=== PATIENT | male | born 1975 | race Caucasian/White ===

== ENCOUNTER → 2022-06-19 12:29 | Outpatient (CLI) | payer OTHER, SELFPAY ==
--- NOTE | ~2022-06-19 | XR_ITS ---
XR hand RT min 3V DATE: 06/19/2022 13:12 INDICATION: Pain and swelling of second digit. Surgery in February. TECHNIQUE: 3 views of right hand COMPARISON: None FINDINGS: Dorsal plate secured by 6 screws are noted at the base and shaft of the proximal phalanx of the second digit, with near anatomic position and alignment of the fracture and some bridging callus formation consistent with healing. Foreshortened second metacarpal bone with evidence of fracture at the neck of this bone, which may be recent. No other fracture or dislocation is detected.. IMPRESSION: Fracture of neck of second metacarpal bone, possibly recent Status post ORIF proximal phalangeal fracture of second digit Reviewed, dictated and finalized at location B.
== END ==
PROVIDERS: PCP Plastic Surgery; Visit Provider Plastic Surgery
DX: S62.330A Displaced fracture of neck of second metacarpal bone, right hand, initial encounter for closed fracture (principal)
CPT/HCPCS: 73130